=== PATIENT | female | born 1975 | race Caucasian/White ===

== ENCOUNTER → 2017-03-16 | Outpatient (REF) | payer OTHER ==
[2017-03-16 13:37] LABS: ALBUMIN 3.7 GM/DL (3.2-5.2); ALBUMIN/GLOBULIN RATIO 1.28 (1.00-1.93); ALKALINE PHOSPHATASE 61 U/L (45-117); ALT/SGPT 15 U/L (12-78); ANION GAP 8 MEQ/L (8-16); AST/SGOT 12 U/L (15-37); BILIRUBIN,TOTAL 0.2 MG/DL (0.2-1.0); BLOOD UREA NITROGEN 10 MG/DL (7-18); CALCIUM LEVEL 8.3 MG/DL (8.5-10.1); CARBON DIOXIDE LEVEL 27 MEQ/L (21-32); CHLORIDE LEVEL 104 MEQ/L (98-107); CHOLESTEROL LEVEL 205 MG/DL (<200); GLOMERULAR FILTRATION RATE > 60.0 (>58); GLUCOSE, FASTING 94 MG/DL (70-105); POTASSIUM SERUM 4.7 MEQ/L (3.5-5.1); SODIUM LEVEL 139 MEQ/L (136-145); TOTAL PROTEIN 6.6 GM/DL (6.4-8.2); TRIGLYCERIDES LEVEL 68 MG/DL (<150)
== END ==
LOC: M SFHCPLAZ 09:26
PROVIDERS: ATTEND Family Medicine
DX: E55.9 Vitamin D deficiency, unspecified (principal); E78.2 Mixed hyperlipidemia; R73.01 Impaired fasting glucose; M50.30 Other cervical disc degeneration, unspecified cervical region

== ENCOUNTER → 2017-08-16 | Outpatient (REF) | payer OTHER ==
[2017-08-16 12:41] LABS: ALBUMIN 3.6 GM/DL (3.2-5.2); ALBUMIN/GLOBULIN RATIO 1.13 (1.00-1.93); ALKALINE PHOSPHATASE 49 U/L (45-117); ALT/SGPT 15 U/L (12-78); ANION GAP 6 MEQ/L (8-16); AST/SGOT 11 U/L (15-37); BILIRUBIN,TOTAL 0.3 MG/DL (0.2-1.0); BLOOD UREA NITROGEN 9 MG/DL (7-18); CALCIUM LEVEL 8.9 MG/DL (8.5-10.1); CARBON DIOXIDE LEVEL 28 MEQ/L (21-32); CHLORIDE LEVEL 106 MEQ/L (98-107); CHOLESTEROL LEVEL 185 MG/DL (<200); CREATININE FOR GFR 0.82 MG/DL (0.55-1.02); GLOMERULAR FILTRATION RATE > 60.0 (>58); GLUCOSE, FASTING 114 MG/DL (70-105); POTASSIUM SERUM 4.4 MEQ/L (3.5-5.1); SODIUM LEVEL 140 MEQ/L (136-145); TOTAL PROTEIN 6.8 GM/DL (6.4-8.2); TRIGLYCERIDES LEVEL 88 MG/DL (<150)
[2017-08-16 14:02] LABS: MEAN CORPUSCULAR HEMOGLOBIN 30.3 pg (27.0-33.0); MEAN CORPUSCULAR HGB CONC 32.8 g/dl (32.0-36.5); MEAN CORPUSCULAR VOLUME 92.3 fl (80.0-96.0); RED CELL DISTRIBUTION WIDTH 12.3 % (11.5-14.5); WHITE BLOOD COUNT 8.5 10^3/uL (4.0-10.0)
[2017-08-16 14:31] LABS: EOSINOPHILS 1 % (0-5)
== END ==
LOC: M SFHCPLAZ 08:38
PROVIDERS: ATTEND Family Medicine
DX: R73.01 Impaired fasting glucose (principal)

== ENCOUNTER → 2017-09-03 | Outpatient (CLI) | payer OTHER ==
[~2017-09-03] MED LIST: ISOVUE-370 76% 100ML VIAL (Q9967) As Ordered ONE
--- NOTE | 2017-09-03 10:29 | REP ---
CT of the abdomen pelvis without and with IV contrast, multiphase imaging: For IV contrast images performed during the arterial phase of enhancement and during the late equilibrium phase of enhancement. There are no comparison studies. The visualized lung dodge are unremarkable. The hepatic parenchyma is homogeneous on all phases of the study. The gallbladder, pancreas and spleen are unremarkable on all phases of the study. The adrenals and kidneys are unremarkable on all phases of the study. There is no hydronephrosis. The abdominal aorta is unremarkable. There is no bowel distension or obstruction. Mesentery is unremarkable. Pelvis: The appendix has a normal appearance. The uterus and adnexa are unremarkable. The bladder is unremarkable. There is no adenopathy or ascites. There is no bowel distension or obstruction. No pneumoperitoneum. There is a tiny fat containing umbilical hernia identified incidentally. Impression: Essentially negative CT study of the abdomen and pelvis without and with IV contrast. The gallbladder, pancreas, appendix, uterus and adnexa are unremarkable. Signed by Jay Acosta MD 09/03/2017 10:21 A
== END ==
LOC: M RAD 08:57
PROVIDERS: ATTEND Family Medicine
DX: R10.31 Right lower quadrant pain (principal)

== ENCOUNTER → 2017-09-07 | Outpatient (CLI) | payer OTHER ==
--- NOTE | 2017-09-07 13:49 | REP ---
PELVIC ULTRASOUND: Real-time sonographic evaluation of the pelvis is performed utilizing transabdominal and endovaginal technique. The bladder measures 7.0 x 6.1 x 7.7 cm. The uterus measures 9.4 x 4.3 x 5.6 cm. Endometrial thickness is 8 mm. The right ovary measures 3.2 x 2.1 x 2.6 cm. There is a dominant follicle measuring 1.6 x 1.3 x 1.3 cm. The left ovary measures 3.2 x 2.3 x 2.9 cm. There is no adnexal mass or free fluid. Blood flow is seen in each ovary with duplex Doppler evaluation, with no torsion, RI 0.64 and left ovary 0.40. IMPRESSION: Negative pelvic ultrasound. Dominant follicle right ovary 1.6 cm in diameter. Signed by Jay Eugene MD 09/07/2017 05:50 P
== END ==
LOC: M RAD 12:41
PROVIDERS: ATTEND Family Medicine
DX: R10.2 Pelvic and perineal pain (principal)

== ENCOUNTER → 2018-08-06 | Outpatient (REF) | payer OTHER | LOC: M SFHCPLAZ 11:58 | DX: R73.01 Impaired fasting glucose (principal) ==

== ENCOUNTER → 2018-08-21 | Outpatient (CLI) | payer OTHER | LOC: M WHC 08:34 | DX: Z12.31 Encounter for screening mammogram for malignant neoplasm of breast (principal) ==

== ENCOUNTER → 2018-08-21 | Outpatient (REF) | payer OTHER ==
[2018-08-21 12:37] LABS: BASO # 0.1 10^3/uL (0.0-0.2); BASO % 0.9 % (0.0-1.0); EOS # 0.3 10^3/uL (0.0-0.50); EOS % 4.2 % (0.0-3.0); IMMATURE GRANULOCYTE % 0.5 % (0-3.0); LYMPH # 1.5 10^3/uL (1.5-4.5); LYMPH % 18.9 % (24.0-44.0); MEAN CORPUSCULAR HEMOGLOBIN 30.8 pg (27.0-33.0); MEAN CORPUSCULAR HGB CONC 33.3 g/dl (32.0-36.5); MEAN CORPUSCULAR VOLUME 92.5 fl (80.0-96.0); MONO # 0.6 10^3/uL (0.0-0.8); MONO % 7.4 % (0.0-5.0); NEUTROPHILS # 5.3 10^3/uL (1.8-7.7); NEUTROPHILS % 68.1 % (36.0-66.0); PLATELET COUNT, AUTOMATED 341 10^3/uL (150-450); RED BLOOD COUNT 3.89 10^6/uL (4.00-5.40); RED CELL DISTRIBUTION WIDTH 12.2 % (11.5-14.5); WHITE BLOOD COUNT 7.8 10^3/uL (4.0-10.0)
[2018-08-21 12:40] LABS: ALBUMIN 3.8 GM/DL (3.2-5.2); ALBUMIN/GLOBULIN RATIO 1.23 (1.00-1.93); ALKALINE PHOSPHATASE 56 U/L (45-117); ALT/SGPT 16 U/L (12-78); ANION GAP 6 MEQ/L (8-16); AST/SGOT 14 U/L (7-37); BILIRUBIN,TOTAL 0.3 MG/DL (0.2-1.0); BLOOD UREA NITROGEN 11 MG/DL (7-18); CALCIUM LEVEL 8.8 MG/DL (8.5-10.1); CARBON DIOXIDE LEVEL 28 MEQ/L (21-32); CHLORIDE LEVEL 105 MEQ/L (98-107); CREATININE FOR GFR 0.88 MG/DL (0.55-1.30); FERRITIN 47 NG/ML (8-252); GLOMERULAR FILTRATION RATE > 60.0 (>58); GLUCOSE, FASTING 99 MG/DL (70-100); IRON (FE) 57 UG/DL (50-170); PERCENT SATURATION 20.7 % (13.2-45.0); POTASSIUM SERUM 4.5 MEQ/L (3.5-5.1); SODIUM LEVEL 139 MEQ/L (136-145); TOTAL IRON BINDING CAPACITY 275 UG/DL (250-450); TOTAL PROTEIN 6.9 GM/DL (6.4-8.2)
[2018-08-21 12:52] LABS: ESTIMATED AVERAGE GLUCOSE 120 MG/DL (60-110); HEMOGLOBIN A1c 5.8 %
== END ==
LOC: M SFHCPLAZ 08:23
DX: R73.01 Impaired fasting glucose (principal)

== ENCOUNTER → 2018-08-26 | Outpatient (CLI) | payer OTHER | LOC: M RAD 09:14 | DX: M17.31 Unilateral post-traumatic osteoarthritis, right knee (principal) | CPT/HCPCS: 73721 ==

== ENCOUNTER → 2019-09-11 | Outpatient (REF) | payer OTHER | LOC: M LAB REF 12:26 | PROVIDERS: ATTEND Physician Assistant | DX: J02.9 Acute pharyngitis, unspecified (principal) ==

== ENCOUNTER → 2020-01-28 | Outpatient (CLI) | payer OTHER ==
[2020-01-28 13:37] LABS: APPEARANCE, URINE CLOUDY (CLEAR); BACTERIA, URINE AUTO 1+ (NEGATIVE); BILIRUBIN, URINE AUTO NEGATIVE (NEGATIVE); BLOOD, URINE BLOOD 3+ (NEGATIVE); COLOR, URINE YELLOW (YELLOW); GLUCOSE, URINE (UA) AUTO NEGATIVE (NEGATIVE); KETONE, URINE AUTO NEGATIVE (NEGATIVE); LEUKOCYTE ESTERASE, URINE AUTO 3+ (NEGATIVE); MUCUS, URINE SMALL (NEGATIVE); NITRITE, URINE AUTO NEGATIVE (NEGATIVE); PROTEIN, URINE AUTO 1+ mg/dL (NEGATIVE); RBC, URINE AUTO 5 /HPF (0-3); SPECIFIC GRAVITY URINE AUTO 1.018 (1.002-1.035); SQUAMOUS EPITHELIAL CELL UR AU 14 /HPF (0-6); UROBILINOGEN, URINE AUTO 0.2 mg/dL (0.0-2.0); WBC, URINE AUTO 47 /HPF (0-3)
[2020-01-28 13:52] LABS: ALBUMIN 3.7 GM/DL (3.2-5.2); ALT/SGPT 15 U/L (12-78); BILIRUBIN,TOTAL 0.5 MG/DL (0.2-1.0); BLOOD UREA NITROGEN 12 MG/DL (7-18); C REACTIVE PROTEIN QUANTITATIV < 0.30 MG/DL (0.00-0.30); CALCIUM LEVEL 8.7 MG/DL (8.5-10.1); CARBON DIOXIDE LEVEL 29 MEQ/L (21-32); CHLORIDE LEVEL 108 MEQ/L (98-107); CHOLESTEROL LEVEL 200 MG/DL (<200); CHOLESTEROL RISK RATIO 3.703 (<5); CREATININE FOR GFR 0.84 MG/DL (0.55-1.30); FREE T4 1.02 NG/DL (0.76-1.46); GLOMERULAR FILTRATION RATE > 60.0 (>58); GLUCOSE, FASTING 99 MG/DL (70-100); HDL CHOLESTEROL 54 MG/DL (>40); LDL CHOLESTEROL 131 MG/DL (<100); NON-HDL-C 146 MG/DL; POTASSIUM SERUM 4.5 MEQ/L (3.5-5.1); SODIUM LEVEL 141 MEQ/L (136-145); TOTAL PROTEIN 6.8 GM/DL (6.4-8.2); TRIGLYCERIDES LEVEL 77 MG/DL (<150)
[2020-01-28 14:11] LABS: HEMOGLOBIN A1c 5.5 %
[2020-01-28 14:17] LABS: MALB URINE SIEMENS 81.6 MG/L; MAU/CREAT RATIO 30.9 MCG/MG (0.0-30.0)
== END ==
LOC: M WUC 08:41
PROVIDERS: ATTEND Family Medicine
DX: R73.01 Impaired fasting glucose (principal)

== ENCOUNTER → 2020-02-05 | Outpatient (REF) | payer OTHER ==
[2020-02-05 19:56] LABS: APPEARANCE, URINE CLOUDY (CLEAR); BACTERIA, URINE AUTO 1+ (NEGATIVE); BILIRUBIN, URINE AUTO NEGATIVE (NEGATIVE); BLOOD, URINE BLOOD NEGATIVE (NEGATIVE); COLOR, URINE YELLOW (YELLOW); GLUCOSE, URINE (UA) AUTO NEGATIVE (NEGATIVE); KETONE, URINE AUTO NEGATIVE (NEGATIVE); LEUKOCYTE ESTERASE, URINE AUTO NEGATIVE (NEGATIVE); NITRITE, URINE AUTO NEGATIVE (NEGATIVE); PROTEIN, URINE AUTO NEGATIVE (NEGATIVE); RBC, URINE AUTO 1 /HPF (0-3); SPECIFIC GRAVITY URINE AUTO 1.006 (1.002-1.035); SQUAMOUS EPITHELIAL CELL UR AU 20 /HPF (0-6); UROBILINOGEN, URINE AUTO 0.2 mg/dL (0.0-2.0); WBC, URINE AUTO 2 /HPF (0-3)
[2020-02-05 20:24] LABS: CREATININE,RANDOM URINE 55.1 MG/DL; TOTAL PROTEIN,RANDOM URINE < 5.0 MG/DL (0.0-12.0)
== END ==
LOC: M LAB 19:37
PROVIDERS: ATTEND Family Medicine
DX: R73.01 Impaired fasting glucose (principal)

== ENCOUNTER → 2020-06-10 | Outpatient (REF) | payer OTHER ==
[2020-07-08 22:14] LABS: APPEARANCE, URINE CLEAR (CLEAR); BACTERIA, URINE AUTO NEGATIVE (NEGATIVE); BILIRUBIN, URINE AUTO NEGATIVE (NEGATIVE); BLOOD, URINE BLOOD NEGATIVE (NEGATIVE); COLOR, URINE YELLOW (YELLOW); GLUCOSE, URINE (UA) AUTO NEGATIVE (NEGATIVE); KETONE, URINE AUTO NEGATIVE (NEGATIVE); LEUKOCYTE ESTERASE, URINE AUTO NEGATIVE (NEGATIVE); NITRITE, URINE AUTO NEGATIVE (NEGATIVE); PROTEIN, URINE AUTO NEGATIVE (NEGATIVE); RBC, URINE AUTO 0 /HPF (0-3); SPECIFIC GRAVITY URINE AUTO 1.008 (1.002-1.035); SQUAMOUS EPITHELIAL CELL UR AU 0 /HPF (0-6); UROBILINOGEN, URINE AUTO 0.2 mg/dL (0.0-2.0); WBC, URINE AUTO 0 /HPF (0-3)
[2020-07-09 00:54] LABS: BASO # 0.1 10^3/uL (0.0-0.2); BASO % 0.8 % (0.0-1.0); EOS # 0.4 10^3/uL (0.0-0.5); EOS % 4.8 % (0.0-3.0); HEMATOCRIT 36.9 % (36.0-47.0); HEMOGLOBIN 12.4 g/dl (12.0-15.5); LYMPH # 1.7 10^3/uL (1.5-5.0); LYMPH % 18.4 % (24.0-44.0); MEAN CORPUSCULAR HEMOGLOBIN 31.7 pg (27.0-33.0); MEAN CORPUSCULAR HGB CONC 33.6 g/dl (32.0-36.5); MEAN CORPUSCULAR VOLUME 94.4 fl (80.0-96.0); MONO # 0.7 10^3/uL (0.0-0.8); MONO % 7.5 % (0.0-5.0); NEUTROPHILS # 6.3 10^3/uL (1.5-8.5); NEUTROPHILS % 68.3 % (36.0-66.0); PLATELET COUNT, AUTOMATED 397 10^3/uL (150-450); RED BLOOD COUNT 3.91 10^6/uL (4.00-5.40); WHITE BLOOD COUNT 9.2 10^3/uL (4.0-10.0)
[2020-07-14 11:45] LABS: ALBUMIN 3.9 GM/DL (3.2-5.2); ALT/SGPT 16 U/L (12-78); BILIRUBIN,TOTAL 0.5 MG/DL (0.2-1.0); BLOOD UREA NITROGEN 11 MG/DL (7-18); CALCIUM LEVEL 9.2 MG/DL (8.5-10.1); CARBON DIOXIDE LEVEL 29 MEQ/L (21-32); CHLORIDE LEVEL 106 MEQ/L (98-107); CREATININE FOR GFR 0.88 MG/DL (0.55-1.30); GLOMERULAR FILTRATION RATE > 60.0 (>58); GLUCOSE, FASTING 97 MG/DL (70-100); LIPASE 107 U/L (73-393); POTASSIUM SERUM 4.8 MEQ/L (3.5-5.1); SODIUM LEVEL 139 MEQ/L (136-145); TOTAL PROTEIN 7.2 GM/DL (6.4-8.2)
== END ==
LOC: M SFHCPLAZ 16:23
PROVIDERS: ATTEND Family Medicine
DX: R10.9 Unspecified abdominal pain (principal)

== ENCOUNTER → 2020-06-11 | Outpatient (CLI) | payer OTHER ==
[~2020-06-11] MED LIST changes: +GASTROGRAFIN SOLUTION 30ML (Q9963) As Ordered ONE; -ISOVUE-370 76% 100ML VIAL (Q9967) As Ordered ONE; +ISOVUE-370 76% 100ML VIAL As Ordered ONE
== END ==
LOC: M RAD 12:28
PROVIDERS: ATTEND Family Medicine
DX: R10.30 Lower abdominal pain, unspecified (principal); N83.291 Other ovarian cyst, right side
CPT/HCPCS: 74177; Q9963; Q9967

== ENCOUNTER → 2020-11-25 | Outpatient (CLI) | payer OTHER ==
--- NOTE | 2020-11-25 14:50 | REPVR ---
PROCEDURE INFORMATION: Exam: MR Lumbar Spine Without Contrast. Exam date and time: 11/25/2020 9:54 AM Age: 45 years old Clinical indication: Low back pain; Patient HX: Lbp; Additional info: Osteoarthritis of spine with radiculopathy TECHNIQUE: Imaging protocol: Multiplanar magnetic resonance images of the lumbar spine without intravenous contrast. COMPARISON: No relevant prior studies available. FINDINGS: Vertebrae: Anatomic alignment. No acute fracture seen. Spinal cord: The conus medullaris ends normally. Mild disc desiccation at L3-L4 and L5-S1. No significant disc height loss. Mild L3-L4 prevertebral spondylosis. L1-L2: No significant disc disease. No significant spinal canal stenosis. No neural foraminal stenosis. L2-L3: No significant disc disease. No significant spinal canal stenosis. No neural foraminal stenosis. L3-L4: Mild disc bulge. 3-4 mm left foraminal to far lateral disc protrusion with high-intensity zone. The central spinal canal and right foramen are patent. Minimal left neural foraminal narrowing without nerve root impingement. L4-L5: Mild facet arthropathy. No stenoses. L5-S1: Mild facet arthropathy. No stenoses. Soft tissues: Unremarkable. IMPRESSION: 1. Small left foraminal to far lateral disc protrusion at L3-L4 causes minimal left neural foraminal narrowing. 2. No high-grade stenoses or nerve root impingement. Electronically signed by: Lorene Hackett On 11/25/2020 14:50:15 PM
--- NOTE | 2020-11-25 14:58 | REPVR ---
PROCEDURE INFORMATION: Exam: MR Cervical Spine Without Contrast Exam date and time: 11/25/2020 10:02 AM Age: 45 years old Clinical indication: Neck pain; Additional info: Degenerative disc disease cervical TECHNIQUE: Imaging protocol: Multiplanar magnetic resonance images of the cervical spine without contrast. COMPARISON: CT Spine,cervical w/o contrast 10/16/2016 8:06 AM FINDINGS: Vertebrae: There is a C7 hemangioma. Anatomic alignment. No acute fracture seen. Spinal cord: Normal signal. No cord compression. The intervertebral discs are preserved in height and signal intensity. Prevertebral spondylosis is mild at C4-C5 and C5-C6. C2-C3: No significant disc disease. No significant spinal stenosis. C3-C4: The central spinal canal is patent. Uncovertebral and facet arthropathy causing moderate right and mild left neural foraminal stenoses. C4-C5: The central spinal canal is patent. Uncovertebral and facet arthropathy causing mild right neural foraminal stenosis. No significant left neural foraminal narrowing. C5-C6: Slight disc bulge and ligamentum flavum buckling. The central spinal canal remains patent. Uncovertebral and facet arthropathy causing severe left and moderate right neural foraminal stenoses. C6-C7: Mild facet arthropathy. No stenoses. C7-T1: Mild facet arthropathy. No stenoses. T2-T3: Evaluated on the sagittal imaging. A right paracentral disc protrusion indents ventral thecal sac. No significant central spinal canal stenosis. Vertebral arteries: Expected flow voids in the vertebral arteries. Soft tissues: Unremarkable. IMPRESSION: 1. Neural foraminal stenoses at C5-C6 may be cause of C6 distribution radiculopathy 2. Moderate right neural foraminal stenosis at C3-C4. Electronically signed by: Lorene Hackett On 11/25/2020 14:58:01 PM
== END ==
LOC: M RAD 08:39
PROVIDERS: ATTEND Physician Assistant Medical
DX: M50.30 Other cervical disc degeneration, unspecified cervical region (principal); M47.27 Other spondylosis with radiculopathy, lumbosacral region

== ENCOUNTER → 2020-12-19 | Outpatient (REF) | payer OTHER | LOC: M WUC 17:25 | PROVIDERS: ATTEND Physician Assistant | DX: J02.9 Acute pharyngitis, unspecified (principal) ==

== ENCOUNTER → 2021-01-17 | Outpatient (CLI) | payer OTHER ==
--- NOTE | 2021-01-19 01:36 | ECWPNPC ---
PATIENT NAME: DO BARKSDALE : 1975 GENDER: FEMALE VISIT DATE: 01/17/2021 DISCHARGE DATE: 01/17/21 0948 VISIT LOCKED DATE TIME: PHYSICIAN: GAVIN TAPIA PHYSICIAN PAGER NO: ACTIVE RESOURCE: GAVIN TAPIA HISTORY OF PRESENT ILLNESS DEPRESSION SCREENING: PHQ-2 (2015 EDITION) LITTLE INTEREST OR PLEASURE IN DOING THINGS?NOT AT ALL FEELING DOWN, DEPRESSED, OR HOPELESS?NOT AT ALL TOTAL SCORE0 GENERAL: 45-YEAR-OLD FEMALE REFERRED BY PRIMARY CARE TO EVALUATE PERSISTENT NECK PAIN WITH RIGHT ARM RADICULAR SYMPTOMS. ALSO HAS A HISTORY OF TORN ROTATOR CUFF RIGHT SHOULDER. PAIN IS AGGRAVATED BY DRIVING. PAIN IS RELIEVED SOMEWHAT WITH CURRENT MEDICATIONS. HAS A LONG HISTORY OF NECK PAIN. DENIES PRECIPITATING EVENT. REVIEWED MRI OF THE CERVICAL SPINE AND DISCUSSED TREATMENT OPTIONS.- - -. FALL RISK SCREENING: SCREENING : NO FALLS REPORTED IN THE LAST YEAR , : NO FALLS REPORTED IN THE LAST YEAR. PAIN SCREENING: PATIENT HAS A COMPLAINT OF ACUTE OR CHRONIC PAIN :YES LOCATION OF PAIN:NECK, BOTH SHOULDERS MOSTLY ON THE RIGHT SIDE INTENSITY OF PAIN (SCALE OF 1 TO 10):6 WHAT DOES YOUR PAIN FEEL LIKE:ACHING, TENDER, THROBBING, SORE DURATION:CONTINOUS, CONSTANT, ALL DAY PAIN IS INCREASED BY:ACTIVITIES PAIN IS DECREASED BY:USE OF PAIN MEDICATIONS, OTHERS HEAT NURSING NOTE: - - -. PAIN CENTER INTAKE QUESTIONS: DO YOU HAVE A HISTORY OF MRSA? :NO DO YOU TAKE A BLOOD THINNERS? :NO DO YOU HAVE ANY BLEEDING DISORDERS? :NO ANY NEW NUMBNESS OR WEAKNESS IN YOUR LEGS OR ARMS? :YES RIGHT ARM ANY PACEMAKER,DEFIBRILLATOR, OR DORSAL COLUMN STIMULATOR? :NO DO YOU HAVE ANY RASHES OR OPEN SORES? :NO ARE YOU ALLERGIC TO IV DYE? :NO ARE YOU DIABETIC? :NO ANY NEW PROBLEMS WITH YOUR MEDICATIONS? :NO HAVE YOU RECEIVED A VACCINE IN THE PAST 30 DAYS? :YES 1ST COVID 01/07/2021 DO YOU PLAN TO RECEIVE A VACCINE IN THE NEXT 21 DAYS? :YES IF SO WHAT VACCINE AND WHEN? 2ND COVID 02/04/2021 DO YOU NEED ANY PRESCRIPTION? :NO DO YOU TAKE ANY IMMUNOSUPPRESSIVE MEDICATIONS? :NO CURRENT MEDICATIONS TAKING ALBUTEROL SULFATE HFA 108 (90 BASE) MCG/ACT AEROSOL SOLUTION 2 PUFFS INHALATION EVERY 8 HOURS NEEDED TAKING VITAMIN D3 SUPER STRENGTH 2000 UNIT TABLET 2 TABLET ORALLY ONCE A DAY TAKING ZOFRAN ODT 4 MG TABLET DISPERSIBLE 1 TABLET ON THE TONGUE AND ALLOW TO DISSOLVE ORALLY EVERY 8 HRS TAKING IMITREX 25 MG TABLET 1 TABLET NEEDED ORALLY DAILY PRN MIGRAINE, MAY REPEAT IN 2 HOURS TAKING MELOXICAM 7.5 MG TABLET 1 TABLET ORALLY BID TAKING MULTI FOR HER - TABLET DIRECTED ORALLY TAKING BACLOFEN 10 MG TABLET 1 TABLET WITH FOOD OR MILK ORALLY THREE TIMES DAILY TAKING MELOXICAM 7.5 MG TABLET 1 TABLET ORALLY BID TAKING VALACYCLOVIR HCL 500 MG TABLET 2 TABLET ORALLY BID X 1 DAY C FLARES NEEDED FOR COLD SORES. TAKING ALPRAZOLAM 0.5 MG TABLET 1 TABLET ORALLY NEEDED DAILY PRN ANXIETY NOT-TAKING BACLOFEN 10 MG TABLET 1 TABLET WITH FOOD OR MILK ORALLY BID MEDICATION LIST REVIEWED AND RECONCILED WITH THE PATIENT PAST MEDICAL HISTORY ANEMIA, IRON DEFICIENCY SECONDARY TO MENORRHAGIA IMPAIRED FASTING GLUCOSE HYPERLIPIDEMIA 2B ASTHMA, ENVIRONMENTALLY/URI INDUCED ANXIETY DISORDER/DEPRESSION HERPES GINGIVOSTOMATITIS, RECURRENT ACNE, PAPULAR PUSTULAR OVERWEIGHT BILATERAL EUSTACHIAN TUBE DYSFUNCTION GESTIONAL DM C 6TH RXED C DIETARY RX-DX IN 3 TRIMESTER NICOTINE USE DURING COLLEGE-1-2 CIGS DAILY CERVICAL DJD-10/2016 CT C C5/6 BULGE, MINIMAL L C5 NF NARROWING R KNEE SP ACL REPAIR, MID BODY MMT-08/2018 MRI ALLERGIES OXYCODONE: ITCHY - ALLERGY BAND-AID: RASH,ITCHY - SIDE EFFECTS - ONSET DATE 01/17/2021 SURGICAL HISTORY RT KNEE. ACL REPAIR-DR. GOTTI 11/2010 IMPACTED TOOTH -2010 DR CRUM - D&C 05/22 FAMILY HISTORY FATHER: ALIVE, T2DM, ONSET LATE 50S MOTHER: , T2DM, ONSET LATE 50S, SMOKER, CAD S/P FIRST WA/CABG IN MID 50S SIBLINGS: ALIVE SON(S): ALIVE DAUGHTER(S): ALIVE 4 BROTHER(S) , 2 SISTER(S) - HEALTHY. 4 SON(S) , 2 DAUGHTER(S) - HEALTHY. NO CANCERS IN 1DRSISTER C [id number] YOMOTHER --DM- 09/29HUSBAND - 05/28/2020. SOCIAL HISTORY GENERAL: TOBACCO USE ARE YOU A:FORMER SMOKER LATEX QUESTIONNAIRE LATEX ALLERGY : HAVE YOU EVER DEVELOPED ANY TYPE OF REACTION AFTER HANDLING LATEX PRODUCTS SUCH RUBBER GLOVES, CONDOMS, DIAPHRAGMS, BALLOONS, SOCKS, OR UNDERWEAR?NO LATEX ALLERGY : HAVE YOU EVER DEVELOPED ANY TYPE OF REACTION DURING OR AFTER DENTAL APPOINTMENT, VAGINAL/RECTAL EXAMINATION, SURGICAL PROCEDURE, OR ANY OTHER EXPOSURE?NO LATEX RISK : HAVE YOU EVER HAD ANY DIFFICULTY BREATHING OR HIVES AFTER EATING OR HANDLING ANY FRUITS, OR VEGETABLES; SUCH KIWI, BANANAS, STONE FRUITS, OR CHESTNUTSNO LATEX RISK : DO YOU HAVE A PREVIOUS PERSONAL HISTORY OF MORE THAN NINE SURGERIES, SPINA BIFIDA, OR REPEATED CATHERIZATIONS? NO LATEX RISK : ARE YOU FREQUENTLY EXPOSED TO LATEX PRODUCTS IN YOUR OCCUPATION?NO DATE ASKED : 01/17/2021 ALCOHOL USE: YES. ALCOHOL SCREENING DID YOU HAVE A DRINK CONTAINING ALCOHOL IN THE PAST YEAR?YES HOW OFTEN DID YOU HAVE SIX OR MORE DRINKS ON ONE OCCASION IN THE PAST YEAR?NEVER (0 POINTS) HOW OFTEN DID YOU HAVE A DRINK CONTAINING ALCOHOL IN THE PAST YEAR?MONTHLY OR LESS (1 POINT) POINTS1 INTERPRETATIONNEGATIVE RECREATIONAL DRUG USE DRUG USE?NO CAFFEINE CAFFEINE USE?YES SEXUAL HX HAD SEX IN THE LAST 12 MONTHS (VAGINAL, ORAL, OR ANAL)?YES WITHMEN ONLY PREVENTION STRATEGIES DISCUSSED:OTHER USE PROTECTION?NO HAVE YOU EVER HAD AN STD?YES HERPES?NO SYPHILIS?NO GC?NO CHLAMYDIA?YES SIKH [id number] WORSHIP LANGUAGE LANGUAGES SPOKEN:FRENCH EDUCATION LEVEL OF EDUCATION:FINISHED COLLEGE LEARNING BARRIERS / SPECIAL NEEDS CHANGE FROM LAST VISIT?NO BARRIERS TO LEARNING?NO HEARING IMPAIRED?NO VISION IMPAIRED?YES :CORRECTIVE LENSES COGNITIVELY IMPAIRED?NO READINESS TO LEARN?YES LEARNING PREFERENCES?NO LEARNING CAPABILITIES PRESENT?YES EMOTIONAL BARRIERS?NO SPECIAL DEVICES?NO TITLE SEARCHER NEEDED?NO DOMESTIC VIOLENCE DO YOU FEEL SAFE IN YOUR ENVIRONMENT?YES OCCUPATION: [employer]. DIET: REGULAR. EXERCISE: NO REGULAR EXERCISE. MARITAL STATUS: . ADVANCE DIRECTIVE ADVANCE DIRECTIVE DISCUSSED WITH PATIENT:YES HOSPITALIZATION/MAJOR DIAGNOSTIC PROCEDURE SEE ABOVE REVIEW OF SYSTEMS CONSTITUTIONAL: ANY RECENT FEVER NO . CHILLS NO . WEIGHT CHANGE OF UNKNOWN REASONS NO . GASTROENTEROLOGY: NEW UNEXPLAINABLE CHANGES IN BOWEL CONTROL NO . CONSTIPATION NO . GENITOURINARY: ANY NEW CHANGE IN BLADDER CONTROL? NO . NEUROLOGY: NEW ONSET DIZZINESS OR NEUROLOGICAL CHANGES NOT MENTIONED NO . NEW NUMBNESS OR PAIN PATTERNS NOT MENTIONED AND PERTINENT TO TODAY'S VISIT NO . CARDIOLOGY: NEW CHEST PRESSURE NO . PATIENT DENIES NO . RESPIRATORY: UNEXPLAINABLE COUGH NO . NEW SHORTNESS OF BREATH NO . VITAL SIGNS WT 156.8 LBS, HT 65 IN, BMI 26.09 INDEX, BP 101/57 MM HG, HR 69 /MIN, RR 18 /MIN, TEMP 97.0 F, OXYGEN SAT % 100%, SAFE IN ENV? (Y/N) YES, NA INITIALS AW 0900T.RENÉE JOHNSON. EXAMINATION GENERAL EXAMINATION: GENERALNO ACUTE DISTRESS, WELL NOURISHED AND HYDRATED. PSYCHAPPROPRIATE MOOD AND AFFECT . NECK:NO LYMPHADENOPATHY, SUPPLE. LUNGS:CLEAR TO AUSCULTATION BILATERALLY, NO WHEEZES, RHONCHI, RALES. HEART:NO MURMURS, REGULAR RATE AND RHYTHM. MUSCULOSKELETAL:NORMAL RANGE OF MOTION. MUSCLE STRENGTH TESTING 5/5 UPPER EXTREMITIES. CERVICAL: NEGATIVE FOR PAIN WITH PALPATION OF CERVICAL SPINE. NEGATIVE FOR PAIN WITH PALPATION OF CERVICAL PARASPINALS. NEGATIVE FOR PAIN WITH PALPATION OF TRAPEZIUS BILAT. DIAGNOSTIC TESTS REVIEWEDCERVICAL SPINE MRI 2020 . ASSESSMENTS CERVICAL RADICULOPATHY - M54.12 (PRIMARY) TREATMENT CERVICAL RADICULOPATHY REFERRAL TO:PHYSICAL THERAPIST REASON:2XWK X 6 WKS,SPRAY AND STRETCH,STRETCHING,RANGE OF MOTION PROCEDURE CODES FA211 ESTABIL[address] PATIENT [facility] CHARGE DISPOSITION & COMMUNICATION FOLLOW UP 2 MONTHS (REASON: F/U AFTER PT) ELECTRONICALLY SIGNED BY MELISSA RAYMOND ON 01/18/2021 AT 08:30 AM EST DISCLAIMER : THIS IS A VISIT SUMMARY EXTRACTED FROM THE [employer] CHART. IT IS NOT A COPY OF THE [employer] PROGRESS NOTE. DARRYL
== END ==
LOC: M PAIN 08:30
PROVIDERS: ATTEND Nurse Practitioner Family
DX: M54.12 Radiculopathy, cervical region (principal); R73.01 Impaired fasting glucose; E78.5 Hyperlipidemia, unspecified; J45.909 Unspecified asthma, uncomplicated; F41.9 Anxiety disorder, unspecified; F32.9 Major depressive disorder, single episode, unspecified; L70.0 Acne vulgaris; Z87.891 Personal history of nicotine dependence; Z88.5 Allergy status to narcotic agent; Z91.048 Other nonmedicinal substance allergy status

== ENCOUNTER → 2021-03-02 | Outpatient (CLI) | payer OTHER ==
--- NOTE | 2021-03-02 14:49 | REP ---
INDICATION: INJURY OF TENDON OF RIGHT ROTATOR CUFF, SEQUELA COMPARISON: None. TECHNIQUE: Internal rotation, external rotation, and Y view. FINDINGS: No acute fracture or dislocation. The acromioclavicular and glenohumeral joints are intact. No periarticular calcifications or degenerative changes are appreciated. Sub acromial space is normal. Surrounding soft tissues are unremarkable. IMPRESSION: Normal age-appropriate right shoulder radiographs. <Electronically signed by Milton Bui > 03/02/21 [id number]
== END ==
LOC: M WUC 14:19
PROVIDERS: ATTEND Physician Assistant Medical
DX: S46.001D Unspecified injury of muscle(s) and tendon(s) of the rotator cuff of right shoulder, subsequent encounter (principal); X58.XXXD Exposure to other specified factors, subsequent encounter; Y92.89 Other specified places as the place of occurrence of the external cause; Y93.89 Activity, other specified; Y99.8 Other external cause status

== ENCOUNTER → 2021-03-16 | Outpatient (CLI) | payer OTHER ==
--- NOTE | 2021-03-16 14:51 | REP ---
INDICATION: INJURY OF RIGHT ROTATOR CUFF. COMPARISON: 01/06/2012. TECHNIQUE: Coronal oblique T1, T2 fat sat, sagittal oblique T2 fat sat, axial T2 fat sat, gradient echo. FINDINGS: Rotator cuff: There are findings of mild to moderate diffuse tendinopathy/tendinitis of the supraspinatus tendon. There is no evidence of rotator cuff tendon tear. Acromioclavicular joint: There are mild hypertrophic degenerative changes of the acromioclavicular joint with mild downward sloping of the acromion. Acromion: Type 2 Biceps Tendon: In bicipital groove, no tenosynovitis. Hill Sach's deformity: None. Deltoid muscle: No abnormal signal. Biceps labral complex: There is fraying of the biceps labral complex. Labrum: There is abnormal signal seen throughout the superior labrum likely representing a SLAP tear. The posterior labrum appears torn and truncated. Cartilage: No defects. Bone marrow: A couple of subcentimeter subcortical cysts are seen in the superolateral humeral head. There is no bone marrow edema or occult fracture. Joint fluid: There is a very small joint effusion. IMPRESSION: Mild to moderate diffuse supraspinatus tendinopathy/tendinitis. No evidence of rotator cuff tendon tear. Mild hypertrophic degenerative changes acromioclavicular joint with a type 2 acromion. Fraying of the biceps labral complex. There are findings likely representing a SLAP tear. Also the posterior labrum appears torn and truncated. <Electronically signed by Jay Eugene > 03/16/21 [id number]
== END ==
LOC: M RAD 13:15
PROVIDERS: ATTEND Family Medicine
DX: S46.001S Unspecified injury of muscle(s) and tendon(s) of the rotator cuff of right shoulder, sequela (principal)

== ENCOUNTER → 2021-03-17 | Outpatient (CLI) | payer OTHER ==
--- NOTE | 2021-03-17 14:08 | REPMRS ---
Patient History The patient states she has not had a clinical breast exam in over a year. Family history of colorectal cancer at age 50 or over in maternal grandmother, breast cancer at age 52 in sister. No Hormone Replacement Therapy Patient states no breast complaints today. Patient has signed MRS History Sheet. Digital Woman Screen Mammo: March 17, 2021 - Exam #: [id number] Bilateral CC and MLO view(s) were taken. Technologist: Lorene Meeks, Technologist Prior study comparison: August 21, 2018, bilateral digital woman screen mammo performed at [facility]. February 29, 2016, digital woman screen mammo performed at [facility]. FINDINGS: The breast tissue is heterogeneously dense. This may lower the sensitivity of mammography. Screening. Digital screening (2D) mammography was performed bilaterally in the CC and MLO projections. Additionally, breast tomosynthesis (3D mammography) was performed bilaterally in the CC and MLO projections. Todays exam was compared to the prior exams(s). By history, the patient has no complaints of a palpable breast abnormality or other significant breast complaints. The breasts are unchanged in size and shape. Once again, dense heterogenous fibroglandular elements are seen bilaterally in a stable appearing pattern but to such a degree that the sensitivity of the mammogram in detecting cancer is decreased.There are no juan-soft tissue densities or spiculated masses. There is no internal architectural distortion. There are no suspicious juan-calcific clusters. Skin thickening or nipple retraction is not present. IMPRESSION: BI-RADS Category 2- Benign Findings(s). There is no evidence of malignant alteration of the breasts. Followup examination recommended in one year. This mammogram was read with the assistance of [facility],an FDA approved computer aided detection system for mammography. The lifetime Tyrer-Cuzick score is 17.4% Negative x-ray reports should not delay surgical consultation if a dominant or clinically suspicious mass is present. The Volpara volumetric breast density category is C, the breasts are heterogenously dense which may obscure small masses.Not all breast cancers can be identified by mammography. Therefore, we recommend that you continue to perform regular breast self-examination and physical examination and then promptly contact your physician of any concerns or changes. Adenosis and dense breasts may obscure an underlying neoplasm. Assessment: BI-RADS/ACR category 2 mammogram. Benign Findings. Recommendation Routine screening mammogram of both breasts in 1 year. Electronically Signed By: Javi Brooks DO 03/17/21 [id number]
== END ==
LOC: M WHC 12:36
PROVIDERS: ATTEND Physician Assistant Medical
DX: Z12.31 Encounter for screening mammogram for malignant neoplasm of breast (principal); Z80.3 Family history of malignant neoplasm of breast

== ENCOUNTER → 2021-04-04 | Outpatient (CLI) | payer OTHER ==
--- NOTE | 2021-04-06 02:03 | ECWPNPC ---
PATIENT NAME: DO BARKSDALE : 1975 GENDER: FEMALE VISIT DATE: 04/04/2021 DISCHARGE DATE: 04/04/21 1136 VISIT LOCKED DATE TIME: PHYSICIAN: GAVIN TAPIA PHYSICIAN PAGER NO: ACTIVE RESOURCE: GAVIN TAPIA REASON FOR APPOINTMENT 1. F/U AFTER PT HISTORY OF PRESENT ILLNESS GENERAL: HERE FOR F/U OF CHRONIC NECK AND RIGHT SHOULDER PAIN.PT HAS HELPED WITH NECK PAIN.CONTINUES TO FOLLOW WITH ORTHO REGARDING RIGHT SHOULDER INJURY AND PAIN.DISCUSSED TRIGGER POINT INJECTIONS.RIGHT NOW SHE IS DOING OK.SHE IS ATTENDING MASSAGE THERAPY.SHE WOULD LIKE TO SEE HOW SHE MAKES OUT WITH ORTHOPEDICS BEFORE MOVING FORWARD WITH TPI. -. FALL RISK SCREENING: SCREENING : NO FALLS REPORTED IN THE LAST YEAR, FALL IN JANUARY INJURIE HER SHOULDER, DID NOT GO TO THE ER. PAIN SCREENING: PATIENT HAS A COMPLAINT OF ACUTE OR CHRONIC PAIN :YES LOCATION OF PAIN:RIGHT SHOULDER INTENSITY OF PAIN (SCALE OF 1 TO 10):5 WHAT DOES YOUR PAIN FEEL LIKE:ACHING, THROBBING DURATION:CONSTANT, ONLY WITH SPECIFIC ACTIVITIES PAIN IS INCREASED BY:ACTIVITIES PAIN IS DECREASED BY:USE OF PAIN MEDICATIONS HEAT NURSING NOTE: -. PAIN CENTER INTAKE QUESTIONS: DO YOU HAVE A HISTORY OF MRSA? :NO DO YOU TAKE A BLOOD THINNERS? :NO DO YOU HAVE ANY BLEEDING DISORDERS? :NO ANY NEW NUMBNESS OR WEAKNESS IN YOUR LEGS OR ARMS? :YES RIGHT ARM ANY PACEMAKER,DEFIBRILLATOR, OR DORSAL COLUMN STIMULATOR? :NO DO YOU HAVE ANY RASHES OR OPEN SORES? :NO ARE YOU ALLERGIC TO IV DYE? :NO ARE YOU DIABETIC? :NO ANY NEW PROBLEMS WITH YOUR MEDICATIONS? :NO HAVE YOU RECEIVED A VACCINE IN THE PAST 30 DAYS? :YES 1ST COVID 01/07/2021 DO YOU PLAN TO RECEIVE A VACCINE IN THE NEXT 21 DAYS? :YES IF SO WHAT VACCINE AND WHEN? 2ND COVID 02/04/2021 DO YOU NEED ANY PRESCRIPTION? :NO DO YOU TAKE ANY IMMUNOSUPPRESSIVE MEDICATIONS? :NO CURRENT MEDICATIONS TAKING ALBUTEROL SULFATE HFA 108 (90 BASE) MCG/ACT AEROSOL SOLUTION 2 PUFFS INHALATION EVERY 8 HOURS NEEDED TAKING VITAMIN D3 SUPER STRENGTH 2000 UNIT TABLET 2 TABLET ORALLY ONCE A DAY, NOTES: NEEDED TAKING ZOFRAN ODT 4 MG TABLET DISPERSIBLE 1 TABLET ON THE TONGUE AND ALLOW TO DISSOLVE ORALLY EVERY 8 HRS TAKING IMITREX 25 MG TABLET 1 TABLET NEEDED ORALLY DAILY PRN MIGRAINE, MAY REPEAT IN 2 HOURS TAKING MELOXICAM 7.5 MG TABLET 1 TABLET ORALLY BID TAKING MULTI FOR HER - TABLET DIRECTED ORALLY TAKING VALACYCLOVIR HCL 500 MG TABLET 2 TABLET ORALLY BID X 1 DAY C FLARES NEEDED FOR COLD SORES., NOTES: NEEDED TAKING ALPRAZOLAM 0.5 MG TABLET 1 TABLET ORALLY NEEDED DAILY PRN ANXIETY MEDICATION LIST REVIEWED AND RECONCILED WITH THE PATIENT PAST MEDICAL HISTORY ANEMIA, IRON DEFICIENCY SECONDARY TO MENORRHAGIA IMPAIRED FASTING GLUCOSE HYPERLIPIDEMIA 2B ASTHMA, ENVIRONMENTALLY/URI INDUCED ANXIETY DISORDER/DEPRESSION HERPES GINGIVOSTOMATITIS, RECURRENT ACNE, PAPULAR PUSTULAR OVERWEIGHT BILATERAL EUSTACHIAN TUBE DYSFUNCTION GESTIONAL DM C 6TH RXED C DIETARY RX-DX IN 3 TRIMESTER NICOTINE USE DURING COLLEGE-1-2 CIGS DAILY CERVICAL DJD-10/2016 CT C C5/6 BULGE, MINIMAL L C5 NF NARROWING R KNEE SP ACL REPAIR, MID BODY MMT-08/2018 MRI FALL IN JANUARY INJURIE HER SHOULDER, DID NOT GO TO THE E ALLERGIES OXYCODONE: ITCHY - ALLERGY BAND-AID: RASH,ITCHY - SIDE EFFECTS - ONSET DATE 01/17/2021 SOCIAL HISTORY GENERAL: TOBACCO USE ARE YOU A:FORMER SMOKER 1996 HOW LONG HAS IT BEEN SINCE YOU LAST SMOKED?> 10 YEARS LATEX QUESTIONNAIRE LATEX ALLERGY : HAVE YOU EVER DEVELOPED ANY TYPE OF REACTION AFTER HANDLING LATEX PRODUCTS SUCH RUBBER GLOVES, CONDOMS, DIAPHRAGMS, BALLOONS, SOCKS, OR UNDERWEAR?NO LATEX ALLERGY : HAVE YOU EVER DEVELOPED ANY TYPE OF REACTION DURING OR AFTER DENTAL APPOINTMENT, VAGINAL/RECTAL EXAMINATION, SURGICAL PROCEDURE, OR ANY OTHER EXPOSURE?NO LATEX RISK : HAVE YOU EVER HAD ANY DIFFICULTY BREATHING OR HIVES AFTER EATING OR HANDLING ANY FRUITS, OR VEGETABLES; SUCH KIWI, BANANAS, STONE FRUITS, OR CHESTNUTSNO LATEX RISK : DO YOU HAVE A PREVIOUS PERSONAL HISTORY OF MORE THAN NINE SURGERIES, SPINA BIFIDA, OR REPEATED CATHERIZATIONS? NO LATEX RISK : ARE YOU FREQUENTLY EXPOSED TO LATEX PRODUCTS IN YOUR OCCUPATION?NO DATE ASKED : 04/04/2021 ALCOHOL USE: YES. ALCOHOL SCREENING DID YOU HAVE A DRINK CONTAINING ALCOHOL IN THE PAST YEAR?YES HOW OFTEN DID YOU HAVE SIX OR MORE DRINKS ON ONE OCCASION IN THE PAST YEAR?NEVER (0 POINTS) HOW OFTEN DID YOU HAVE A DRINK CONTAINING ALCOHOL IN THE PAST YEAR?MONTHLY OR LESS (1 POINT) POINTS1 INTERPRETATIONNEGATIVE RECREATIONAL DRUG USE DRUG USE?NO CAFFEINE CAFFEINE USE?YES SEXUAL HX HAD SEX IN THE LAST 12 MONTHS (VAGINAL, ORAL, OR ANAL)?YES WITHMEN ONLY PREVENTION STRATEGIES DISCUSSED:OTHER USE PROTECTION?NO HAVE YOU EVER HAD AN STD?YES HERPES?NO SYPHILIS?NO GC?NO CHLAMYDIA?YES Z[employer]RIAN [id number] DENOMINATIONAL LANGUAGE LANGUAGES SPOKEN:NAURUAN EDUCATION LEVEL OF EDUCATION:FINISHED COLLEGE LEARNING BARRIERS / SPECIAL NEEDS CHANGE FROM LAST VISIT?NO BARRIERS TO LEARNING?NO HEARING IMPAIRED?NO VISION IMPAIRED?YES :CORRECTIVE LENSES COGNITIVELY IMPAIRED?NO READINESS TO LEARN?YES LEARNING PREFERENCES?NO LEARNING CAPABILITIES PRESENT?YES EMOTIONAL BARRIERS?NO SPECIAL DEVICES?NO PAINT PREPPER NEEDED?NO DOMESTIC VIOLENCE DO YOU FEEL SAFE IN YOUR ENVIRONMENT?YES OCCUPATION: [employer]. DIET: REGULAR. EXERCISE: NO REGULAR EXERCISE. MARITAL STATUS: . ADVANCE DIRECTIVE ADVANCE DIRECTIVE DISCUSSED WITH PATIENT:YES REVIEW OF SYSTEMS CONSTITUTIONAL: ANY RECENT FEVER NO . CHILLS NO . WEIGHT CHANGE OF UNKNOWN REASONS NO . GASTROENTEROLOGY: NEW UNEXPLAINABLE CHANGES IN BOWEL CONTROL NO . CONSTIPATION NO . GENITOURINARY: ANY NEW CHANGE IN BLADDER CONTROL? NO . NEUROLOGY: NEW ONSET DIZZINESS OR NEUROLOGICAL CHANGES NOT MENTIONED NO . NEW NUMBNESS OR PAIN PATTERNS NOT MENTIONED AND PERTINENT TO TODAY'S VISIT NO . CARDIOLOGY: NEW CHEST PRESSURE NO . PATIENT DENIES NO . RESPIRATORY: UNEXPLAINABLE COUGH NO . NEW SHORTNESS OF BREATH NO . VITAL SIGNS WT 155 LBS, HT 65 IN, BMI 25.79 INDEX, BP 111/63 MM HG, HR 68 /MIN, RR 18 /MIN, TEMP 99.1 F, OXYGEN SAT % 97%, SAFE IN ENV? (Y/N) YES, NA INITIALS AW 1106T.RENÉE JOHNSON. EXAMINATION GENERAL EXAMINATION: GENERAL AWAKE,ALERT ,PLEAASANT . PSYCH AFFECT NORMAL . LUNGS: LUNG CASAS ARE CLEAR TO AUSCULTATION BILATERALLY. GOOD MOVEMENT OF AIR . HEART: S1, S2 IN A REGULAR RATE AND RHYTHM. NO SIGNIFICANT MURMURS, RUBS OR GALLOPS NOTED . MUSCULOSKELETAL: TRIGGER POINTS:NOTED OVER RIGHT SHOULDER,UPPER THORACIC. CERVICAL:TRIGGER POINTS: CERVICAL AND TRAPEZIUS OVER LEFT NECK..PAIN IS AGGREVATED WITH ROJM NECK. ASSESSMENTS MYALGIA, OTHER SITE - M79.18 (PRIMARY) TREATMENT MYALGIA, OTHER SITE NOTES: CONTINUE HOME EXCERSISE AND STRETCHING.CONTINUE FOLLLOW UP WITH ORTHO REGARDING RIGHT SHOULDER.CONTINUE MASSAGE THERAPY. PROCEDURE CODES FA211 ESTABILISHED PATIENT [facility] CHARGE DISPOSITION & COMMUNICATION FOLLOW UP PT WILL CALL TO MAKE F/U IF NEEDED (REASON: RIGHT NECK,RIGHT SHOULDER PAIN) ELECTRONICALLY SIGNED BY MELISSA RAYMOND ON 04/05/2021 AT 04:03 PM EDT DISCLAIMER : THIS IS A VISIT SUMMARY EXTRACTED FROM THE [employer] CHART. IT IS NOT A COPY OF THE [employer] PROGRESS NOTE. DARRYL
== END ==
LOC: M PAIN 11:00
PROVIDERS: ATTEND Nurse Practitioner Family
DX: M79.18 Myalgia, other site (principal); D50.0 Iron deficiency anemia secondary to blood loss (chronic); N92.0 Excessive and frequent menstruation with regular cycle; R73.01 Impaired fasting glucose; E78.5 Hyperlipidemia, unspecified; J45.909 Unspecified asthma, uncomplicated; F41.9 Anxiety disorder, unspecified; F32.9 Major depressive disorder, single episode, unspecified; L70.9 Acne, unspecified; Z87.891 Personal history of nicotine dependence; Z79.1 Long term (current) use of non-steroidal anti-inflammatories (NSAID); Z79.899 Other long term (current) drug therapy; Z88.5 Allergy status to narcotic agent; Z91.048 Other nonmedicinal substance allergy status

== ENCOUNTER → 2021-08-31 | Outpatient (CLI) | payer OTHER ==
--- NOTE | 2021-09-01 06:32 | REP ---
INDICATION: ABN BLEEDING COMPARISON: None. TECHNIQUE: Transabdominal pelvic ultrasound followed by transvaginal examination for better evaluation of the endometrium and adnexa with color Doppler evaluation of the ovaries. FINDINGS: Bladder is unremarkable and measures 6.0 x 5.0 x 9.3 cm. Normal anteverted uterus measures 10.1 x 5.2 x 6.6 cm. The endometrial complex measures 17.8 mm thickness. No discrete uterine or endometrial abnormalities are appreciated. Bilateral ovaries are normal in appearance and vascularity without evidence for torsion. Right ovary measures 2.8 x 2.9 x 2.2 cm; R I = 0.33. Left ovary measures 3.0 x 2.5 x 2.0 cm; R I = 0.64. No pelvic fluid or adnexal mass lesion. IMPRESSION: Normal pelvic ultrasound. <Electronically signed by Milton Bui > 09/01/21 0628
== END ==
LOC: M RAD 12:48
PROVIDERS: ATTEND Obstetrics & Gynecology Obstetrics
DX: N93.9 Abnormal uterine and vaginal bleeding, unspecified (principal)

== ENCOUNTER → 2021-09-16 | Outpatient (CLI) | payer OTHER ==
[2021-09-16 16:34] LABS: FREE T4 1.05 NG/DL (0.76-1.46); THYROID STIMULATING HORMONE 0.791 uIU/ML (0.358-3.740)
== END ==
LOC: M WUC 13:33
PROVIDERS: ATTEND Obstetrics & Gynecology Obstetrics
DX: Z01.419 Encounter for gynecological examination (general) (routine) without abnormal findings (principal)

== ENCOUNTER → 2022-05-02 | Outpatient (CLI) | payer OTHER ==
[2022-05-02 10:46] LABS: HEMOGLOBIN A1c 5.3 %
[2022-05-02 11:11] LABS: MALB URINE SIEMENS 5.6 MG/L; MAU/CREAT RATIO 3.2 MCG/MG (0.0-30.0)
[2022-05-02 11:12] LABS: BLOOD UREA NITROGEN 13 MG/DL (7-18); CARBON DIOXIDE LEVEL 26 MEQ/L (21-32); CHLORIDE LEVEL 107 MEQ/L (98-107); GLOMERULAR FILTRATION RATE > 60.0 (>58); GLUCOSE, FASTING 96 MG/DL (70-100); POTASSIUM SERUM 4.2 MEQ/L (3.5-5.1); SODIUM LEVEL 140 MEQ/L (136-145)
[2022-05-02 11:13] LABS: ALBUMIN 3.6 GM/DL (3.2-5.2); ALT/SGPT 18 U/L (12-78); BILIRUBIN,TOTAL 0.7 MG/DL (0.2-1.0); CHOLESTEROL LEVEL 180 MG/DL (<200); FERRITIN 44 NG/ML (8-252); FREE T4 1.01 NG/DL (0.76-1.46); HDL CHOLESTEROL 75 MG/DL (>40); LDL CHOLESTEROL 85 MG/DL (<100); NON-HDL-C 105 MG/DL; TOTAL PROTEIN 6.8 GM/DL (6.4-8.2); TRIGLYCERIDES LEVEL 99 MG/DL (<150)
[2022-05-02 11:14] LABS: PTH INTACT 35.5 PG/ML (18.5-88.0); TOTAL 25(OH) VITAMIN D 34.7 NG/ML (30.0-100.0)
[2022-05-03 10:08] LABS: H PYLORI SERUM QUANT IgG ABY 0.55 (0.00-0.79); INSULIN LEVEL 4.2 uIU/mL (2.6-24.9)
== END ==
LOC: M WUC 08:16
PROVIDERS: ATTEND Family Medicine
DX: R73.01 Impaired fasting glucose (principal); E55.9 Vitamin D deficiency, unspecified; M47.27 Other spondylosis with radiculopathy, lumbosacral region

== ENCOUNTER → 2022-10-02 | Outpatient (CLI) | payer BC | LOC: M WHC 12:57 | PROVIDERS: ATTEND Family Medicine | DX: Z12.31 Encounter for screening mammogram for malignant neoplasm of breast (principal); M81.0 Age-related osteoporosis without current pathological fracture ==

== ENCOUNTER 2023-05-07 10:02 | Day surgery (SDC) | payer BC ==
[~2023-05-07] VITALS: Ht 165.1 cm; Wt 76.1 kg
[~2023-05-07 10:02] MED LIST changes: +BACL1TAB9 PO; -GASTROGRAFIN SOLUTION 30ML (Q9963) As Ordered ONE; -ISOVUE-370 76% 100ML VIAL As Ordered ONE; +MELO15TA28 PO; +NS 1,000 ML IV ONE; +XANA0.5T PO
[2023-05-07] MEDS ORDERED: propofoL 200 MG/20 ML VIAL As Ordered ONE ×2 (12:20→12:30)
[2023-05-07 12:56] VITALS: BP 110/67; O2SAT 100
== END 2023-05-07 13:17 | disposition home or self-care (01) ==
LOC: M OPP 10:02
PROVIDERS: ATTEND Internal Medicine Gastroenterology
DX: Z12.11 Encounter for screening for malignant neoplasm of colon (principal); Z80.0 Family history of malignant neoplasm of digestive organs; K64.0 First degree hemorrhoids; K57.30 Diverticulosis of large intestine without perforation or abscess without bleeding; Z79.899 Other long term (current) drug therapy

== ENCOUNTER → 2024-10-31 | Outpatient (CLI) | payer BC ==
[~2024-10-31] MED LIST changes: -NS 1,000 ML IV ONE
== END ==
LOC: M PLAIMG 10:46 → M PLARAD 10:46
PROVIDERS: ATTEND Family Medicine
DX: M47.812 Spondylosis without myelopathy or radiculopathy, cervical region (principal)

== ENCOUNTER → 2025-05-14 | Outpatient (CLI) | payer BC | LOC: M PLAIMG 11:14 | PROVIDERS: ATTEND Family Medicine | DX: M47.812 Spondylosis without myelopathy or radiculopathy, cervical region (principal) ==